=== PATIENT | female | born 1965 ===

== ENCOUNTER 2018-08-11 14:40 | Outpatient (CLI) | payer OTHER | END 2018-08-11 14:48 | disposition home or self-care (01) | LOC: MAMO-SONO 14:40 | DX: N64.4 Mastodynia (principal); N60.11 Diffuse cystic mastopathy of right breast; Z12.31 Encounter for screening mammogram for malignant neoplasm of breast; N63.10 Unspecified lump in the right breast, unspecified quadrant; N63.20 Unspecified lump in the left breast, unspecified quadrant ==